=== PATIENT | female | born 1995 | race Caucasian/White ===

== ENCOUNTER 2020-05-29 20:07 | Emergency (ER) | payer OTHER ==
[~2020-05-29] VITALS: Ht 180.3 cm; Wt 123.6 kg
--- NOTE | 2020-05-29 20:54 | PHYS DOC ---
Adult General Chief Complaint Chief Complaint: RIB PAIN HPI HPI Patient is a 24-year-old female, otherwise healthy who presents with left-sided rib pain. States that 2 weeks ago she slipped in the shower and landed on the corner of the bathtub. States it did not hurt at first but over the last couple of weeks has gotten sore, 6 out of 10, dull and achy in nature. Denies any other injuries. Denies any chest pain, shortness of breath, abdominal pain, nausea, vomiting Review of Systems Review of Systems Review of systems otherwise unremarkable except noted in HPI Allergies Allergies Allergies Coded Allergies Type Severity Reaction Last Updated Verified No Known Allergies Allergy Unknown 05/29/20 Yes Physical Exam Physical Exam Constitutional: Well developed, well nourished, no acute distress, non-toxic appearance. [] Neck: Normal range of motion, no tenderness, supple, no stridor. [] Cardiovascular:Heart rate regular rhythm, no murmur [] Lungs & Thorax: Bilateral breath sounds clear to auscultation. Left-sided tenderness to palpation just lateral to the left breast. No bruising, contusions or deformities noted [] Abdomen: Bowel sounds normal, soft, no tenderness, no masses, no pulsatile masses. [] Back: No tenderness, Extremities: No tenderness, no cyanosis, no clubbing, ROM intact, no edema. [] Neurologic: Alert and oriented X 3, normal motor function, normal sensory function, no focal deficits noted. [] Psychologic: Affect normal, judgement normal, mood normal. [] EKG EKG [] Radiology/Procedures Radiology/Procedures []Comparison: None recently. Findings: Within normal limits cardiomediastinal silhouette and naty. No pneumothorax, layering effusion or focal airspace abnormality. No displaced rib fracture seen on the left. Impression: No displaced left-sided rib fracture or acute radiographic abnormality of the chest. Electronically signed by: FABIENNE SOSA MD (05/29/2020 9:05 PM) [facility] Heart Score Risk Factors: Risk Factors: DM, Current or recent (<one month) smoker, HTN, HLP, family history of CAD, obesity. Risk Scores: Risk Factors: DM, Current or recent (<one month) smoker, HTN, HLP, family history of CAD, obesity. Course & Med Decision Making Course & Med Decision Making Patient is a 24-year-old female who presents with left-sided rib pain after falling in the shower 2 weeks ago Vital signs not concerning. Physical exam noted above. Imaging with no acute osseous abnormalities. Discussed findings with patient and advised on pain management at home. Advised to follow-up with primary care physician for follow-up visit. Gave return precautions to the ED. Patient grateful, verbalized understanding and agreed with plan of discharge. [] Dragon Disclaimer Dragon Disclaimer This electronic medical record was generated, in whole or in part, using a voice recognition dictation system. Departure Departure: Impression: Primary Impression: Rib pain Disposition: 01 DC HOME SELF CARE/HOMELESS Condition: GOOD Referrals: PCP,NO (PCP) Patient Instructions: RICE - Routine Care for Injuries Additional Instructions: Please read all the attached information. Please begin a Tylenol, ibuprofen and ice regimen as needed for pain control. Please follow-up with your primary care as needed. Please come back to the ED with new or concerning symptoms. CHOCO WHELAN MD May 29, 2020 20:54
--- NOTE | 2020-05-29 21:07 | RAD ---
Study: XR RIBS MIN 3 VIEWS LT W/PA CHEST Indication: Fall. Comparison: None recently. Findings: Within normal limits cardiomediastinal silhouette and naty. No pneumothorax, layering effusion or foc al airspace abnormality. No displaced rib fracture seen on the left. Impression: No displaced left-sided rib fracture or acute radiographic abnormality of the chest. Electronically signed by: FABIENNE SOSA MD (05/29/2020 9:05 PM) [facility]
[2020-05-29 21:27] VITALS: BP 154/89
== END 2020-05-29 21:27 | disposition home or self-care (01) ==
LOC: ER 20:07
DX: R07.81 Pleurodynia (principal)
CPT/HCPCS: 71101; 99283

== ENCOUNTER 2020-07-06 08:57 | Emergency (ER) | payer OTHER ==
[~2020-07-06] VITALS: Ht 180.3 cm; Wt 123.6 kg
[2020-07-06 09:00] VITALS: BP 145/102
--- NOTE | 2020-07-06 09:29 | PHYS DOC ---
Past History Past Medical History: No Pertinent History Past Surgical History: Tonsillectomy Alcohol Use: Occasionally Adult General Chief Complaint Chief Complaint: RIB PAIN [facility] HPI Patient is a 24-year-old female who presents with left-sided rib pain. She reports that she fell in the shower about a month ago and was told at that time she had some broken ribs on the left side. She reports she has been doing better with the pain since that injury however yesterday she sneezed felt a pop and had acutely worsening left-sided rib pain. She reports taking 1000 mg of ibuprofen at 4 AM this morning report that was helpful however every time she moves or stretches in certain positions she has acutely worsening pain. Reports the pain is concentrated on the left lower chest/upper left abdomen and wraps from the front to the back but she has no pain at rest. Denies fever, shortness of breath, periods of dyspnea, increased pain on exertion, and episodes of diaphoresis, or increased lower extremity edema Review of Systems Review of Systems Fourteen body systems of review of systems have been reviewed. See HPI for pertinent positives and negative responses, other garcia all other systems are negative, non-pertinent or non-contributory Allergies Allergies Allergies Coded Allergies Type Severity Reaction Last Updated Verified No Known Allergies Allergy Unknown 05/29/20 Yes Physical Exam Physical Exam Constitutional: Well developed, well nourished, no acute distress, non-toxic appearance. HENT: Normocephalic, atraumatic, bilateral external ears normal, oropharynx moist, no oral exudates, nose normal. Eyes: PERRLA, EOMI, conjunctiva normal, no discharge. Neck: Normal range of motion, no tenderness, supple, no stridor. Cardiovascular: Heart rate regular, sinus rhythm, no murmurs rubs or gallops Lungs & Thorax: Bilateral breath sounds clear to auscultation pain on palpation of the lower left rib cage Abdomen: Bowel sounds normal, soft, no tenderness, no masses, no pulsatile masses. Nonsurgical abdomen, no peritoneal signs Skin: Warm, dry, no erythema, no rash. Back: No tenderness, no CVA tenderness. Extremities: No tenderness, no cyanosis, no clubbing, ROM intact, no edema. Neurologic: Alert and oriented X 3, grossly normal motor & sensory function, no focal deficits noted. Psychologic: Affect normal, judgement normal, mood normal. Current Patient Data Vital Signs Vital Signs Date Time Temp Pulse Resp B/P (MAP) Pulse Ox O2 Delivery O2 Flow Rate FiO2 07/06/20 09:00 98.1 79 16 145/102 (116) 99 Room Air Lab Results Laboratory Tests Test 07/06/20 09:13 POC Urine HCG, Qualitative hcg negative (Negative) EKG EKG [] Radiology/Procedures Radiology/Procedures []Exam Date: 07/06/2020 9:38 AM XR CHEST 2V Indication: Reason: left chest wall/rib pain / Spl. Instructions: / History: Comparison: May 29, 2020 FINDINGS/ IMPRESSION: The cardiac silhouette and pulmonary vasculature are within normal limits. There is no focal consolidation, pleural effusion or pneumothorax. The visualized osseous structures are intact. Electronically signed by: Reena Spencer MD (07/06/2020 10:08 AM) [id number] DICTATED AND SIGNED BY: REENA SPENCER MD DATE: 07/06/20 1007 CC: MILLI YANG DO; PCP,NO ~MTH0 0 Heart Score C/O Chest Pain: No HEART Score for Chest Pain: HEART Score for Chest Pain Response (Comments) Value History Slighlty/Non-Suspicious 0 Age < 45 0 Risk Factors No Risk Factors 0 Total 0 Risk Factors: Risk Factors: DM, Current or recent (<one month) smoker, HTN, HLP, family histo ry of CAD, obesity. Risk Scores: Risk Factors: DM, Current or recent (<one month) smoker, HTN, HLP, family history of CAD, obesity. Course & Med Decision Making Course & Med Decision Making Patient is a 24-year-old female presenting for left-sided rib pain. She reports pain began yesterday after sneezing and feeling a pop. Vitals were normal on presentation and physical exam displayed tenderness to palpation of the lower left rib cage. Patient took approximately 1000 mg of ibuprofen prior to arrival and Tylenol was administered on presentation for comfort. Two-view chest was ordered to evaluate for possible rib dislocation versus fracture. X-ray revealed no broken ribs or rib dislocations. Discussed most likely diagnosis of rib contusion versus intercostal sprain/strain. Patient was discharged with supportive care and given return precautions. Patient was agreeable to the plan of care and vocalized understanding of the return precautions. Dragon Disclaimer Dragon Disclaimer This electronic medical record was generated, in whole or in part, using a voice recognition dictation system. Departure Departure: Impression: Primary Impression: Left-sided chest pain Additional Impression: Rib pain Disposition: 01 DC HOME SELF CARE/HOMELESS Condition: STABLE Referrals: PCP,NO (PCP) Patient Instructions: Strain-SportsMed Additional Instructions: You were seen for chest pain. Your workup did not show any acute abnormalities today, but does not indicate that you do not have underlying cardiovascular disease. Your radiographs of your chest did not reveal any concerning findings for any bony abnormalities such as fracture. You do need to follow up with your primary doctor and/or band presser for further evaluation and treatment. Please continue supportive care practices such as utilizing ibuprofen and/or Tylenol for pain in addition to topical heat to area of concern. You should return to the ED if you develop worsening chest pain, shortness of breath, fever, abnormal sweating, leg swelling, or any other new or concerning symptoms. Problem Qualifiers MILLI YANG DO Jul 06, 2020 09:29
[2020-07-06] MEDS ORDERED: ACETAMINOPHEN 500 MG TABLET PO ONE (09:45)
[2020-07-06 09:47] LABS: BILIRUBIN,URINE NEG (NEG); CLARITY,URINE HAZY; COLOR,URINE YELLOW; GLUCOSE,URINE NEG (NEG)
[2020-07-06 09:48] LABS: BACTERIA,URINE FEW /HPF (0-FEW); NITRITE,URINE NEG (NEG); RBC,URINE 0 /HPF (0-2); SQUAMOUS EPITHELIAL CELL,UR MOD /LPF; UROBILINOGEN,URINE 0.2 mg/dL (0.2 mg/dL); WBC,URINE RARE /HPF (0-4)
--- NOTE | 2020-07-06 10:10 | RAD ---
Exam Date: 07/06/2020 9:38 AM XR CHEST 2V Indication: Reason: left chest wall/rib pain / Spl. Instructions: / History: Comparison: May 29, 2020 FINDINGS/ IMPRESSION: The cardiac silhouette and pulmonary vasculature are within normal limits. There is no focal consolidation, pleural effusion or pneumothorax. The visualized osseous structures are intact. Electronically signed by: Bobby Spencer MD (07/06/2020 10:08 AM) [id number]
[2020-07-06] MEDS ORDERED: LIDOCAINE (700MG/PATCH) PATCH. TD ONE (10:33)
[2020-07-06] MEDS ORDERED: PATCH REMOVAL. MC SCH (21:00)
== END 2020-07-06 10:40 | disposition home or self-care (01) ==
LOC: ER 08:57
DX: R07.81 Pleurodynia (principal)
CPT/HCPCS: 71046; 81001; 81025; 99284